=== PATIENT | male | born 1995 | race Hispanic/Latino ===

== ENCOUNTER 2017-11-22 21:45 | Emergency (ER) | payer SELFPAY ==
[~2017-11-22] VITALS: Ht 167.6 cm; Wt 104.3 kg
[2017-11-22 23:00] VITALS: BP 140/80
== END 2017-11-22 22:30 | disposition home or self-care (01) ==
LOC: FSED 22:14
DX: H01.004 Unspecified blepharitis left upper eyelid (principal); H01.005 Unspecified blepharitis left lower eyelid; S05.02XA Injury of conjunctiva and corneal abrasion without foreign body, left eye, initial encounter
CPT/HCPCS: 99283